=== PATIENT | male | born 1945 | race Caucasian/White ===

== ENCOUNTER 2020-03-21 16:35 | Emergency (ER) | payer OTHER ==
[~2020-03-21] VITALS: Ht 177.8 cm; Wt 88.6 kg
--- NOTE | 2020-03-21 17:21 | NUR ---
PATIENT TRANSPORTATION TO [facility] ARRANGED VIA CAN ETA 15 MINUTES. VOUCHER GRANTED BY [employer] [place]
--- NOTE | 2020-03-21 17:24 | NUR ---
AGREES TO DC TO [facility] FOR TAXI
[2020-03-21 17:25] VITALS: BP 140/87
== END 2020-03-21 17:27 | disposition home or self-care (01) ==
LOC: ER 16:37
DX: I48.91 Unspecified atrial fibrillation (principal); R00.0 Tachycardia, unspecified
CPT/HCPCS: 93005; 99283